=== PATIENT | male | born 1965 | race Caucasian/White ===

== ENCOUNTER 2016-06-10 15:20 | Emergency (ER) | payer MEDICARE ==
[~2016-06-10] VITALS: Ht 177.8 cm; Wt 101.0 kg
[~2016-06-10 15:20] MED LIST: ABAC300T PO; ALPR0.5T3 PO; ATOR40TA16 PO; CYCL1TAB29 PO; DOLU1TAB PO; FINA5TAB2 PO; GABA600T PO; IBUP-232 PO; LISI-519 PO; OMEP20TA PO; OXYC15TA PO; QUET400XR PO; TEMA30CA PO; ZIPR1CAP12 PO
[2016-06-10 15:29] VITALS: BP 103/82; PULSE 111; RESP 16; TEMP 98.3; O2SAT 96
[2016-06-10] MEDS ORDERED: REDCAP2 PO (16:11)
[2016-06-10] MEDS ORDERED: FISH120014 PO (16:11)
[2016-06-10] MEDS ORDERED: ZOFR4TAB PO (16:11)
[2016-06-10] MEDS ORDERED: TAMS5CAP PO (16:11)
[2016-06-10] MEDS ORDERED: ATOR40TA16 PO (16:11)
[2016-06-10] MEDS ORDERED: CYCL1TAB29 PO (16:11)
[2016-06-10] MEDS ORDERED: ZOLO100T PO (16:11)
[2016-06-10] MEDS ORDERED: ABAC1TAB3 PO (16:11)
[2016-06-10] MEDS ORDERED: CYAN1TAB24 PO (16:11)
--- NOTE | 2016-06-10 16:17 | PD ---
HPI Chief Complaint: Dizziness Time Seen by Provider: 16:04 Travel History International Travel<30 days: No Contact w/Intl Traveler<30days: No Traveled to known affect area: No History of Present Illness HPI This 50-year-old male presents after a fall. He has a history of HIV. He is scheduled for a hip replacement in June. He was walking and tripped. He fell and landed on his left knee and also hit the left side of his head and did not lose consciousness. He is feeling dizzy. He has a history of HIV. PFSH Past Medical History Blood Disorders: Yes (HIV+) Bipolar Disorder: Yes Anxiety: Yes (Panic attacks, paranoia) Depression: Yes Heart Rhythm Problems: No Cardiac Catheterization: No Cardiovascular Problems: No High Cholesterol: Yes Congestive Heart Failure: No Dementia: Yes Diabetes: No Diminished Hearing: No GERD: Yes Headaches: Yes Hypertension: Yes Immune Disorder: Yes (HIV +) Psychiatric: Yes (PANIC ATTACKS) Immunizations Current: Yes Migraines: Yes Myocardial Infarction: No Schizophrenia: Yes Triglycerides - High: Yes Tetanus Vaccination: < 5 Years Influenza Vaccination: Yes Past Surgical History Coronary Artery Bypass Graft: No Joint Replacement: Yes (BL shoulders) Oral Surgery: Yes (1978--WISDOM TEETH REMOVED) Other Surgery: Yes (WISDOM TEETH REMOVED) Social History Alcohol Use: No Tobacco Use: No Substance Use: No Allergies-Medications (Allergen,Severity, Reaction): Coded Allergies: No Known Allergies (Verified , 06/10/16) Reported Meds & Prescriptions Reported Meds & Active Scripts Active Ibuprofen 600 Mg Tab 600 Mg PO Q6H PRN Reported Triumeq (Wmpxgxkj-Hwidycgacnew-Dbbcwcpdgi) 600-50-300 Mg Tab 1 Tab PO DAILY Hazardous agent; use appropriate precautions for handling & disposal. Flexeril (Cyclobenzaprine HCl) 10 Mg Tab 10 Mg PO TID B12 (Cyanocobalamin) 1,000 Mcg Tab 1 Tab PO BID Red Yeast Rice (Red Yeast Rice Extract) 600 Mg Cap 1 Cap PO BID Fish Oil ([place]-3 Fatty Acids) 1,200 Mg Cap 1 Tab PO BID Zofran (Ondansetron HCl) 4 Mg Tab 4 Mg PO Q6HR PRN Flomax (Tamsulosin HCl) 0.4 Mg Cap 0.4 Mg PO BID Atorvastatin (Atorvastatin Calcium) 40 Mg Tab 40 Mg PO HS Zoloft (Sertraline HCl) 100 Mg Tab 100 Mg PO DAILY Ziprasidone 80 Mg Cap 80 Mg PO BID Temazepam 30 Mg Cap 30 Mg PO HS PRN Seroquel XR (Quetiapine Fumarate) 400 Mg Tab 800 Mg PO HS Oxycodone (Oxycodone HCl) 15 Mg Tab 30 Mg PO Q4H PRN Omeprazole 20 Mg Tab 20 Mg PO DAILY Lisinopril 5 Mg Tab 5 Mg PO DAILY Gabapentin 600 Mg Tab 600 Mg PO BID Finasteride 5 Mg Tab 5 Mg PO DAILY Do not crush. Alprazolam 0.5 Mg Tab 0.5 Mg PO Q4H PRN Review of Systems General / Constitutional: No: Fever, Chills Eyes: No: Diploplia HENT: Positive: Headaches, Lightheadedness, No: Neck Pain Cardiovascular: No: Chest Pain or Discomfort, Palpitations Respiratory: No: Cough Gastrointestinal: No: Vomiting, Diarrhea Genitourinary: No: Urgency Musculoskeletal: Positive: Arthralgias Skin: No Rash Neurologic: Positive: Dizziness, No: Syncope Physical Exam Narrative GENERAL: Well-developed male SKIN: Warm and dry. HEAD: Atraumatic. Normocephalic. EYES: Pupils equal and round. No scleral icterus. No injection or drainage. There is a 5 cm laceration above the left eye ENT: No nasal bleeding or discharge. Mucous membranes pink and moist. NECK: Trachea midline. No JVD. CARDIOVASCULAR: Regular rate and rhythm. No murmur appreciated. RESPIRATORY: No accessory muscle use. Clear to auscultation. Breath sounds equal bilaterally. GASTROINTESTINAL: Abdomen soft, non-tender, nondistended. Hepatic and splenic margins not palpable. MUSCULOSKELETAL: No obvious deformities. No clubbing. No cyanosis. No edema. Left knee is swollen. There is an abrasion anteriorly. No gross instability. NEUROLOGICAL: Awake and alert. No obvious cranial nerve deficits. Motor grossly within normal limits. Normal speech. PSYCHIATRIC: Appropriate mood and affect; insight and judgment normal. Data Data Last Documented VS Vital Signs Date Time Temp Pulse Resp B/P Pulse Ox O2 Delivery O2 Flow Rate FiO2 06/10/16 17:25 93 16 95/60 95 Room Air 06/10/16 16:20 98.3 Orders Knee, Complete (4vws) (06/10/16 16:12) Ct Brain W/O Iv Contrast(Rout) (06/10/16 16:12) Lidocai-Epi 1%-1:100,000 Inj (Xylocaine- (06/10/16 17:45) MDM Medical Decision Making Medical Screen Exam Complete: Yes Emergency Medical Condition: Yes Medical Record Reviewed: Yes Differential Diagnosis Differential includes laceration forehead, skull fracture, fractured knee Narrative Course X-ray of the knee is negative. CT scan of the head is negative. Laceration has been sutured. Patient is stable for discharge Diagnosis Primary Impression: Laceration of forehead Qualified Code: S01.81XA - Laceration of forehead, initial encounter Additional Impression: Contusion of left knee Qualified Code: S80.02XA - Contusion of left knee, initial encounter Additional Instructions: suture removal 5 days Scripts Oxycodone-Acetaminophen (Percocet)7.5-325 mg Tab1 Tab PO Q4H PRN (PAIN) #20 TAB Ref 0 Prov:Brenton Bell MD 06/10/16 Disposition: 01 DISCHARGE HOME Condition: Stable Brenton Bell MD Jun 10, 2016 16:17
[2016-06-10 16:20] VITALS: BP 82/57; PULSE 101; RESP 14; RESP 16; TEMP 98.3; O2SAT 92
[2016-06-10 16:35] VITALS: BP 92/70; PULSE 99; RESP 16; O2SAT 92
--- NOTE | 2016-06-10 16:55 | RADHPO ---
EXAM DATE/TIME: 06/10/2016 16:20 [facility] COMPARISON: No previous studies available for comparison. INDICATIONS : Patient states he fell, left knee laceration. MEDICAL HISTORY : HIV SURGICAL HISTORY : None. ENCOUNTER: Initial ACUITY: 1 day PAIN SCORE: 6/10 LOCATION: Left Knee FINDINGS: Four view examination of the left knee demonstrates no evidence of fracture or dislocation. Bony min eralization is normal. The articular surfaces are intact. The suprapatellar soft tissues have a nor mal configuration. CONCLUSION: Negative trauma study. Chandana Gomes MD on June 10, 2016 at 16:52 Board Certified Radiologist. This report was verified electronically.
--- NOTE | 2016-06-10 17:14 | RADHPO ---
EXAM DATE/TIME: 06/10/2016 17:02 1 [facility] COMPARISON: CT BRAIN W/O CONTRAST, December 21, 2014, 17:53. INDICATIONS : Trauma. Fall. Left supraorbital laceration. RADIATION DOSE: 61.69 CTDIvol (mGy) MEDICAL HISTORY : HIV. Hypertension. Dementia. SURGICAL HISTORY : None. ENCOUNTER: Initial ACUITY: 1 day PAIN SCALE: 8/10 LOCATION: Left frontal TECHNIQUE: Multiple contiguous axial images were obtained of the head. Using automated exposure control and adj ustment of the mA and/or kV according to patient size, radiation dose was kept as low as reasonably a chievable to obtain optimal diagnostic quality images. FINDINGS: CEREBRUM: The ventricles are normal for age. No evidence of midline shift, mass lesion, hemorrhage or acute in farction. No extra-axial fluid collections are seen. POSTERIOR FOSSA: The cerebellum and brainstem are intact. The 4th ventricle is midline. The cerebellopontine angle i s unremarkable. EXTRACRANIAL: The visualized portion of the orbits is intact. SKULL: The calvaria is intact. No evidence of skull fracture. CONCLUSION: Negative trauma CT. Chandana Gomes MD on June 10, 2016 at 17:11 Board Certified Radiologist. This report was verified electronically.
[2016-06-10 17:25] VITALS: BP 95/60; PULSE 93; RESP 16; O2SAT 95
[2016-06-10] MEDS ORDERED: LIDOCAINE 1%/EPINEPHrine 1:100,000 SOLN 20 ML VIAL INFIL ONE (17:30)
[2016-06-10] MEDS ORDERED: LIDOCAINE 1%/EPINEPHrine 1:100,000 SOLN 30 ML VIAL INFIL ONE (17:45)
[2016-06-10] MEDS ORDERED: PERC7.5T13 PO (18:35)
--- NOTE | 2016-06-10 18:36 | PD ---
Physical Exam Date Seen by Provider: Jun 10, 2016 Narrative For full history and physical examination please see previous provider's note. I was asked to repair laceration to left eyebrow Data Data Last Documented VS Vital Signs Date Time Temp Pulse Resp B/P Pulse Ox O2 Delivery O2 Flow Rate FiO2 06/10/16 17:25 93 16 95/60 95 Room Air 06/10/16 16:20 98.3 Orders Knee, Complete (4vws) (06/10/16 16:12) Ct Brain W/O Iv Contrast(Rout) (06/10/16 16:12) Lidocai-Epi 1%-1:100,000 Inj (Xylocaine- (06/10/16 17:45) MDM Medical Record Reviewed: Yes Supervised Visit with MAR: Yes Procedures Procedure Narrative LACERATION LOCATION: Left eyebrow LENGTH: 2 cm NUMBER OF STITCHES/REUBEN: 11 stitches REPAIR: The area of the laceration was prepped with Betadine and sterilely draped. The laceration was infiltrated with 2 presented Xylocaine. The wound was copiously irrigated and explored without evidence of foreign body, tendon injury or neurovascular injury. The wound was closed using 4-0 Prolene. This was a 1 layer repair. A sterile dressing was applied. The patient was advised to keep the dressing clean and dry. Patient tolerated the procedure well. Scripts Oxycodone-Acetaminophen (Percocet)7.5-325 mg Tab1 Tab PO Q4H PRN (PAIN) #20 TAB Ref 0 Prov:Brenton Bell MD 06/10/16 Jael Mcpherson Jun 10, 2016 18:36
[2016-06-10 18:40] VITALS: BP 97/62; PULSE 85; RESP 16; O2SAT 96
== END 2016-06-10 18:45 | disposition home or self-care (01) ==
LOC: PHED 15:20
DX: S01.81XA Laceration without foreign body of other part of head, initial encounter (principal); S80.02XA Contusion of left knee, initial encounter; E78.00 Pure hypercholesterolemia, unspecified; I10 Essential (primary) hypertension; W01.10XA Fall on same level from slipping, tripping and stumbling with subsequent striking against unspecified object, initial encounter; Y93.01 Activity, walking, marching and hiking
CPT/HCPCS: 12011; 70450; 73564

== ENCOUNTER 2016-06-21 11:55 | Emergency (ER) | payer MEDICARE ==
[~2016-06-21] VITALS: Ht 177.8 cm; Wt 96.0 kg
[~2016-06-21 11:55] MED LIST changes: +ABAC1TAB3 PO; -ABAC300T PO; +CYAN1TAB24 PO; -DOLU1TAB PO; +FISH120014 PO; +PERC7.5T13 PO; +REDCAP2 PO; +TAMS5CAP PO; +ZOFR4TAB PO; +ZOLO100T PO
[2016-06-21 12:26] VITALS: BP 103/74; PULSE 106; RESP 16; TEMP 98.9; O2SAT 96
--- NOTE | 2016-06-21 12:52 | PD ---
HPI Chief Complaint: Wound/Suture/Staple Re-Check Time Seen by Provider: 12:37 Travel History International Travel<30 days: No Contact w/Intl Traveler<30days: No Traveled to known affect area: No History of Present Illness HPI Patient 50-year-old male presents emergency department for suture removal. Patient had sutures placed 11 days ago to forehead. 11 stitches were placed at that time. Patient states his been healing well he has no complaints. Also head CT had at that time which was negative. Left knee x-ray which was negative as well. PFSH Past Medical History Blood Disorders: Yes (HIV+) Bipolar Disorder: Yes Anxiety: Yes (Panic attacks, paranoia) Depression: Yes Heart Rhythm Problems: No Cardiac Catheterization: No Cardiovascular Problems: No High Cholesterol: Yes Congestive Heart Failure: No Dementia: Yes Diabetes: No Diminished Hearing: No GERD: Yes Headaches: Yes Hypertension: Yes Immune Disorder: Yes (HIV +) Psychiatric: Yes (PANIC ATTACKS) Immunizations Current: Yes Migraines: Yes Myocardial Infarction: No Schizophrenia: Yes Triglycerides - High: Yes Past Surgical History Coronary Artery Bypass Graft: No Joint Replacement: Yes (BL shoulders) Oral Surgery: Yes (1978--WISDOM TEETH REMOVED) Other Surgery: Yes (WISDOM TEETH REMOVED) Social History Alcohol Use: No Tobacco Use: No Substance Use: No Allergies-Medications (Allergen,Severity, Reaction): Coded Allergies: No Known Allergies (Verified , 06/21/16) Reported Meds & Prescriptions Reported Meds & Active Scripts Active Percocet (Oxycodone-Acetaminophen) 7.5-325 mg Tab 1 Tab PO Q4H PRN Ibuprofen 600 Mg Tab 600 Mg PO Q6H PRN Reported Triumeq ([place]-Lgqjnynjtvrn-Sejtuhixue) 600-50-300 Mg Tab 1 Tab PO DAILY Hazardous agent; use appropriate precautions for handling & disposal. Flexeril (Cyclobenzaprine HCl) 10 Mg Tab 10 Mg PO TID B12 (Cyanocobalamin) 1,000 Mcg Tab 1 Tab PO BID Red Yeast Rice (Red Yeast Rice Extract) 600 Mg Cap 1 Cap PO BID Fish Oil ([place]-3 Fatty Acids) 1,200 Mg Cap 1 Tab PO BID Zofran (Ondansetron HCl) 4 Mg Tab 4 Mg PO Q6HR PRN Flomax (Tamsulosin HCl) 0.4 Mg Cap 0.4 Mg PO BID Atorvastatin (Atorvastatin Calcium) 40 Mg Tab 40 Mg PO HS Zoloft (Sertraline HCl) 100 Mg Tab 100 Mg PO DAILY Ziprasidone 80 Mg Cap 80 Mg PO BID Temazepam 30 Mg Cap 30 Mg PO HS PRN Seroquel XR (Quetiapine Fumarate) 400 Mg Tab 800 Mg PO HS Oxycodone (Oxycodone HCl) 15 Mg Tab 30 Mg PO Q4H PRN Omeprazole 20 Mg Tab 20 Mg PO DAILY Lisinopril 5 Mg Tab 5 Mg PO DAILY Gabapentin 600 Mg Tab 600 Mg PO BID Finasteride 5 Mg Tab 5 Mg PO DAILY Do not crush. Alprazolam 0.5 Mg Tab 0.5 Mg PO Q4H PRN Review of Systems Except as stated in HPI: all other systems reviewed are Neg Physical Exam Narrative GENERAL: Well-nourished, well-developed patient. SKIN: Warm and dry. Well healing laceration to left eyebrow. [address]. Wound is clean dry and intact healing quite well. No sign symptoms of infection. HEAD: Normocephalic. EYES: No scleral icterus. No injection or drainage. NECK: Supple, trachea midline. No JVD or lymphadenopathy. CARDIOVASCULAR: Regular rate and rhythm without murmurs, gallops, or rubs. RESPIRATORY: Breath sounds equal bilaterally. No accessory muscle use. GASTROINTESTINAL: Abdomen soft, non-tender, nondistended. MUSCULOSKELETAL: No cyanosis, or edema. BACK: Nontender without obvious deformity. No CVA tenderness. Data Data Last Documented VS Vital Signs Date Time Temp Pulse Resp B/P Pulse Ox O2 Delivery O2 Flow Rate FiO2 06/21/16 12:26 98.9 106 16 103/74 96 [facility] Medical Decision Making Medical Screen Exam Complete: Yes Emergency Medical Condition: Yes Differential Diagnosis Counter for suture repair, laceration, closed head injury. Narrative Course 9 sutures removed by me. This in contradiction to previous notes is 11 stitches are placed. It appears as well as 2 stitches might have fallen out. The wound was fully explored there is only 9 stitches in this wound at this time. Patient is reassured discussed wound care going forward. Stable for discharge. Diagnosis Primary Impression: Visit for suture removal Disposition: 01 DISCHARGE HOME Condition: Stable Doug Jesus MD Jun 21, 2016 12:52
== END 2016-06-21 13:23 | disposition home or self-care (01) ==
LOC: PHEFT 11:55
DX: S01.112D Laceration without foreign body of left eyelid and periocular area, subsequent encounter (principal); Z48.02 Encounter for removal of sutures; X58.XXXD Exposure to other specified factors, subsequent encounter
CPT/HCPCS: 99281

== ENCOUNTER → 2016-07-19 | Outpatient (CLI) | payer MEDICARE ==
[~2016-07-19] MED LIST changes: +OMEGCAP PO
[2016-07-19 15:04] LABS: AUTOMATED NEUTROPHIL # 2.1 TH/MM3 (1.8-7.7); BASOPHIL % 0.5 % (0.0-2.0); EOSINOPHIL # 0.5 TH/MM3 (0-0.4); EOSINOPHIL % 7.4 % (0.0-4.0); HEMATOCRIT 38.8 % (39.0-51.0); HEMO FLAGS DIFF FINAL; LYMPH % 56.4 % (9.0-44.0); LYMPHOCYTE # 3.8 TH/MM3 (1.0-4.8); MEAN CELL VOLUME 89.9 FL (80.0-100.0); MEAN CORPUSCULAR HEMOGLOBIN 29.8 PG (27.0-34.0); MEAN CORPUSCULAR HGB CONC 33.1 % (32.0-36.0); MONO % 4.7 % (0.0-8.0); PLATELET COUNT 248 TH/MM3 (150-450); RED BLOOD COUNT 4.31 MIL/MM3 (4.50-5.90); WHITE BLOOD COUNT 6.7 TH/MM3 (4.0-11.0)
[2016-07-19 15:31] LABS: ALKALINE PHOSPHATASE 118 U/L (45-117); TOTAL BILIRUBIN ADULT 0.3 MG/DL (0.2-1.0)
[2016-07-19 15:35] LABS: ALT (GPT) 45 U/L (12-78); ANION GAP 9 MEQ/L (5-15); AST (GOT) 31 U/L (15-37); BICARBONATE 27.2 MEQ/L (21.0-32.0); BLOOD UREA NITROGEN 7 MG/DL (7-18); CHLORIDE 107 MEQ/L (98-107); GLOMERULAR FILTRATION RATE 72 ML/MIN (>89); GLUCOSE,FASTING 136 MG/DL (74-99); POTASSIUM 3.9 MEQ/L (3.5-5.1); SODIUM (NA) 143 MEQ/L (136-145)
[2016-07-19 17:18] LABS: CHLAMYDIA PCR NOT DETECTED (NOT DETECT); NEISSERIA PCR NOT DETECTED (NOT DETECT)
[2016-07-19 17:24] LABS: HEMOGLOBIN A1b 1.7 %; HEMOGLOBIN Ao 84.4 %; HEMOGLOBIN LA1C 2.3 %; HEMOGLOBIN P3 3.1 %
[2016-07-21 23:53] LABS: CD4/CD8 RATIO 0.4 (0.86-5.00)
[2016-07-22 09:52] LABS: HIV RNA COPIES LESS THAN 20.0 (()); HIV RNA LOG COPIES LESS THAN 1.30 (())
== END ==
LOC: CLAB 14:32
PROVIDERS: ATTEND Internal Medicine Infectious Disease
DX: E87.8 Other disorders of electrolyte and fluid balance, not elsewhere classified (principal); D64.9 Anemia, unspecified; E55.9 Vitamin D deficiency, unspecified; B20 Human immunodeficiency virus [HIV] disease; B07.9 Viral wart, unspecified; R94.6 Abnormal results of thyroid function studies
CPT/HCPCS: 36415; 80053; 82306; 83036; 84443; 85025; 86355; 86357; 86359; 86360; 87491; 87536; 87591

== ENCOUNTER → 2016-10-07 | Outpatient (CLI) | payer MEDICARE ==
[2016-10-07 12:28] LABS: BLOOD, URINE NEG (NEG); GLUCOSE,URINE NEG (NEG); KETONE, URINE NEG (NEG); NITRITE,URINE NEG (NEG); URINE COLOR YELLOW (YELLW/STRAW)
[2016-10-07 12:31] LABS: COMMENT (UR) CULT NOT INDICATED; CULTURE IF INDICATED CULT NOT INDICATED
[2016-10-07 12:32] LABS: AUTOMATED NEUTROPHIL # 1.8 TH/MM3 (1.8-7.7); BASOPHIL % 0.4 % (0.0-2.0); EOSINOPHIL # 0.4 TH/MM3 (0-0.4); EOSINOPHIL % 7.5 % (0.0-4.0); HEMATOCRIT 37.2 % (39.0-51.0); HEMO FLAGS DIFF FINAL; LYMPH % 53.6 % (9.0-44.0); MEAN CORPUSCULAR HEMOGLOBIN 28.3 PG (27.0-34.0); MONO % 5.7 % (0.0-8.0); NEUT % 32.8 % (16.0-70.0); PLATELET COUNT 238 TH/MM3 (150-450); RED BLOOD COUNT 4.32 MIL/MM3 (4.50-5.90); WHITE BLOOD COUNT 5.6 TH/MM3 (4.0-11.0)
[2016-10-07 12:55] LABS: ANION GAP 5 MEQ/L (5-15); AST (GOT) 31 U/L (15-37); BICARBONATE 28.9 MEQ/L (21.0-32.0); BLOOD UREA NITROGEN 10 MG/DL (7-18); CHLORIDE 107 MEQ/L (98-107); GLOMERULAR FILTRATION RATE 70 ML/MIN (>89); GLUCOSE,FASTING 131 MG/DL (74-99); POTASSIUM 3.6 MEQ/L (3.5-5.1); SODIUM (NA) 141 MEQ/L (136-145)
[2016-10-07 12:58] LABS: ALKALINE PHOSPHATASE 166 U/L (45-117); ALT (GPT) 39 U/L (12-78); HDL CHOLESTEROL 36.8 MG/DL (40.0-60.0); LDL CHOLESTEROL 54 MG/DL (0-99); TOTAL BILIRUBIN ADULT 0.4 MG/DL (0.2-1.0)
[2016-10-08 09:51] LABS: RAPID PLASMA REAGIN SCREEN NON-REACTIVE (NON-REACTVE)
[2016-10-09 03:50] LABS: CD4/CD8 RATIO 0.4 (0.86-5.00)
[2016-10-09 13:51] LABS: HIV RNA COPIES LESS THAN 20.0 (()); HIV RNA LOG COPIES LESS THAN 1.30 (())
== END ==
LOC: CLAB 11:55
PROVIDERS: ATTEND Internal Medicine Infectious Disease
DX: E87.8 Other disorders of electrolyte and fluid balance, not elsewhere classified (principal); D64.9 Anemia, unspecified; B20 Human immunodeficiency virus [HIV] disease; E78.4 Other hyperlipidemia; K75.9 Inflammatory liver disease, unspecified; A53.9 Syphilis, unspecified; N39.0 Urinary tract infection, site not specified; E55.9 Vitamin D deficiency, unspecified
CPT/HCPCS: 36415; 80053; 80061; 80074; 81001; 82306; 85025; 86355; 86357; 86359; 86360; 86592; 87536

== ENCOUNTER 2016-10-16 04:03 | Emergency (ER) | payer MEDICARE ==
[~2016-10-16] VITALS: Ht 177.8 cm; Wt 98.4 kg
[~2016-10-16 04:03] MED LIST changes: -OMEGCAP PO
[2016-10-16 04:14] VITALS: BP 129/80; PULSE 103; RESP 12; TEMP 98.1; O2SAT 95
[2016-10-16] MEDS ORDERED: OMEGCAP PO (04:35)
--- NOTE | 2016-10-16 05:03 | PD ---
HPI Chief Complaint: Headache Time Seen by Provider: 05:03 Travel History International Travel<30 days: No Contact w/Intl Traveler<30days: No Traveled to known affect area: No History of Present Illness HPI 66-year-old male presents with complaint of recurrent breakthrough migraine. Patient is followed by local neurologist pain management provider Dr. Fraga. Patient has seen his neurologist within the past 2 weeks everything was fine. Patient states oftentimes has breakthrough migraines related to inadequate dietary intake and just began a diet. Patient's had associated nausea and vomiting with photophobia and phonophobia. Headache is not sudden onset thunderclap or worst ever. Patient not responding to outpatient medications. Headache pain 9/10 intensity. PFSH Past Medical History Narrative Medical Review of past medical history dyslipidemia dementia HIV migraine; orthopedic surgery dental surgery; no tobacco use no alcohol use; Nursing notes reviewed Blood Disorders: Yes (HIV+) Bipolar Disorder: Yes Anxiety: Yes (Panic attacks, paranoia) Depression: Yes Heart Rhythm Problems: No Cardiac Catheterization: No Cardiovascular Problems: No High Cholesterol: Yes Congestive Heart Failure: No Dementia: Yes Diabetes: No Diminished Hearing: No GERD: Yes Headaches: Yes Hypertension: Yes Immune Disorder: Yes (HIV +) Psychiatric: Yes (PANIC ATTACKS) Immunizations Current: Yes Migraines: Yes Myocardial Infarction: No Pneumonia: Yes Schizophrenia: Yes Triglycerides - High: Yes Influenza Vaccination: Yes Past Surgical History Coronary Artery Bypass Graft: No Joint Replacement: Yes (BL shoulders, LEFT HIP: SEPTEMBER 01, 2016) Oral Surgery: Yes (1978--WISDOM TEETH REMOVED) Other Surgery: Yes (WISDOM TEETH REMOVED) Social History Alcohol Use: No Tobacco Use: No Substance Use: No Allergies-Medications (Allergen,Severity, Reaction): Coded Allergies: No Known Allergies (Verified , 10/16/16) Reported Meds & Prescriptions Reported Meds & Active Scripts Active Percocet (Oxycodone-Acetaminophen) 7.5-325 mg Tab 1 Tab PO Q4H PRN Reported [place]-3 Fish Oil/Vitamin (Fish Oil-Cholecalciferol) 1,000-1,000 Mg Cap 1 Cap PO BID Triumeq (Xblvxmzh-Jhfxlxamteui-Gvxldzfusu) 600-50-300 Mg Tab 1 Tab PO DAILY Hazardous agent; use appropriate precautions for handling & disposal. B12 (Cyanocobalamin) 1,000 Mcg Tab 1 Tab PO BID Red Yeast Rice (Red Yeast Rice Extract) 600 Mg Cap 1 Cap PO BID Zofran (Ondansetron HCl) 4 Mg Tab 4 Mg PO Q6HR PRN Flomax (Tamsulosin HCl) 0.4 Mg Cap 0.4 Mg PO DAILY Atorvastatin (Atorvastatin Calcium) 40 Mg Tab 40 Mg PO HS Zoloft (Sertraline HCl) 100 Mg Tab 100 Mg PO DAILY Ziprasidone 80 Mg Cap 80 Mg PO BID Temazepam 30 Mg Cap 30 Mg PO HS PRN Seroquel XR (Quetiapine Fumarate) 400 Mg Tab 800 Mg PO HS Oxycodone (Oxycodone HCl) 15 Mg Tab 30 Mg PO Q4H PRN Omeprazole 20 Mg Tab 20 Mg PO DAILY Lisinopril 5 Mg Tab 5 Mg PO DAILY Gabapentin 600 Mg Tab 600 Mg PO BID Alprazolam 0.5 Mg Tab 0.5 Mg PO Q4H PRN Review of Systems Except as stated in HPI: all other systems reviewed are Neg General / Constitutional: No: Fever Eyes: Positive: Photophobia HENT: Positive: Headaches, No: Congestion, Neck Pain Cardiovascular: No: Chest Pain or Discomfort Respiratory: No: Shortness of Breath Gastrointestinal: Positive: Vomiting (x1) Genitourinary: No: Flank Pain Musculoskeletal: No: Myalgias Skin: No Rash Neurologic: Positive: Headache, No: Weakness, Focal Abnormalities, Coordination Problem Psychiatric: No: Anxiety Hematologic/Lymphatic: No: Lymph Node Enlargement Physical Exam Narrative GENERAL: Well-developed well-nourished drowsy male in no acute distress no respiratory distress SKIN: Warm and dry. HEAD: Atraumatic. Normocephalic. EYES: Pupils equal and round. No scleral icterus. No injection or drainage. ENT: No nasal bleeding or discharge. Mucous membranes pink and moist. NECK: Trachea midline. No JVD. CARDIOVASCULAR: Regular rate and rhythm. RESPIRATORY: No accessory muscle use. Clear to auscultation. Breath sounds equal bilaterally. GASTROINTESTINAL: Abdomen soft, non-tender, nondistended. Hepatic and splenic margins not palpable. MUSCULOSKELETAL: Extremities without clubbing, cyanosis, or edema. No obvious deformities. NEUROLOGICAL: Awake and drowsy. No obvious cranial nerve deficits. Motor grossly within normal limits. Five out of 5 muscle strength in the arms and legs. Normal speech. PSYCHIATRIC: Appropriate mood and affect; insight and judgment normal. Data Data Last Documented VS Vital Signs Date Time Temp Pulse Resp B/P Pulse Ox O2 Delivery O2 Flow Rate FiO2 10/16/16 07:01 97.8 83 16 107/73 95 Room Air 10/16/16 05:[address] Brain W/O Iv Contrast(Rout) (10/16/16 ) ^ Saline Lock (10/16/16 05:03) Ketorolac Inj (Toradol Inj) (10/16/16 05:15) Ondansetron Inj (Zofran Inj) (10/16/16 05:15) Sodium Chlor 0.9% 1000 Ml Inj (Ns 1000 M (10/16/16 05:15) MDM Medical Decision Making Medical Screen Exam Complete: Yes Emergency Medical Condition: Yes Medical Record Reviewed: Yes Interpretation(s) Last Impressions Head CT 10/16/16 0000 Signed Impressions: Service Date/Time: Tuesday, October 16, 2016 05:47 - CONCLUSION: Normal examination. Carlos Barrios MD Differential Diagnosis Cephalgia, recurrent migraine, tension headache, polypharmacy Narrative Course 66-year-old male presents with complaint of recurrent breakthrough migraine. Patient is followed by local neurologist pain management provider Dr. Fraga. Patient has seen his neurologist within the past 2 weeks everything was fine. Patient states oftentimes has breakthrough migraines related to inadequate dietary intake and just began a diet. Patient's had associated nausea and vomiting with photophobia and phonophobia. Headache is not sudden onset thunderclap or worst ever. Patient not responding to outpatient medications. Patient administered Toradol 30 mg IV Zofran 4 mg IV and 1 L normal saline. Imaging studies CT brain noncontrast ordered CT brain noncontrast reveals no acute abnormality Patient reports he is feeling well and is ready to be discharged to home successful intervention of extreme migraine and stable at this time for outpatient management Diagnosis Primary Impression: Migraine Qualified Code: G43.909 - Migraine without status migrainosus, not intractable , unspecified migraine type Referrals: Neurologist call for appointment Pain Management call for appointment Primary Care Physician call for appointment Patient Instructions: General Instructions Additional Instructions: Increase fluid hydration Continued use Zofran as needed for nausea and/or vomiting Follow-up with your primary care provider, pain management provider, and your neurologist call office on Tuesday to schedule follow-up appointment Return to the emergency department for any concerns or change in condition Take acetaminophen/Tylenol as tolerated for fever 100.4F or greater or for minor pain Disposition: 01 DISCHARGE HOME Condition: Stable Franci Wood MD October 16, 2016 05:03
[2016-10-16] MEDS ORDERED: KETOROLAC TROMETHAMINE 30 MG/ML (IVP) VIAL IV PUSH ONE (05:15)
[2016-10-16] MEDS ORDERED: ONDANSETRON HCL 4 MG/2 ML VIAL IV PUSH ONE (05:15)
[2016-10-16] MEDS ORDERED: SODIUM CHLOR 0.9% 1000 ML INJ 1,000 ML IV ONE (05:15)
[2016-10-16 05:30] VITALS: BP 84/52; PULSE 86; RESP 12; O2SAT 95
--- NOTE | 2016-10-16 06:34 | RADHPO ---
EXAM DATE/TIME: 10/16/2016 05:47 [facility] COMPARISON: CT BRAIN W/O CONTRAST, June 10, 2016, 17:02. INDICATIONS : Headaches. RADIATION DOSE: 66.63 CTDIvol (mGy) MEDICAL HISTORY : Hypertension. Dementia. HIV. SURGICAL HISTORY : None. ENCOUNTER: Initial ACUITY: 1 day PAIN SCALE: 8/10 LOCATION: cranial TECHNIQUE: Multiple contiguous axial images were obtained of the head. Using automated exposure control and adj ustment of the mA and/or kV according to patient size, radiation dose was kept as low as reasonably a chievable to obtain optimal diagnostic quality images. FINDINGS: CEREBRUM: The ventricles are normal for age. No evidence of midline shift, mass lesion, hemorrhage or acute in farction. No extra-axial fluid collections are seen. POSTERIOR FOSSA: The cerebellum and brainstem are intact. The 4th ventricle is midline. The cerebellopontine angle i s unremarkable. EXTRACRANIAL: The visualized portion of the orbits is intact. SKULL: The calvaria is intact. No evidence of skull fracture. CONCLUSION: Normal examination. Carlos Barrios MD on October 16, 2016 at 6:33 Board Certified Radiologist. This report was verified electronically.
[2016-10-16 07:01] VITALS: BP 107/73; PULSE 83; RESP 16; TEMP 97.8; O2SAT 95
== END 2016-10-16 07:45 | disposition home or self-care (01) ==
LOC: PHED 04:03
DX: G43.909 Migraine, unspecified, not intractable, without status migrainosus (principal); B20 Human immunodeficiency virus [HIV] disease; F03.90 Unspecified dementia, unspecified severity, without behavioral disturbance, psychotic disturbance, mood disturbance, and anxiety; I10 Essential (primary) hypertension; F41.0 Panic disorder [episodic paroxysmal anxiety]; F20.9 Schizophrenia, unspecified; E78.2 Mixed hyperlipidemia; F32.9 Major depressive disorder, single episode, unspecified
CPT/HCPCS: 70450; 96361; 96374; 96375; 99285; J1885; J2405; J7030

== ENCOUNTER → 2017-02-14 | Outpatient (CLI) | payer MEDICARE ==
[~2017-02-14] MED LIST changes: -CYCL1TAB29 PO; -FINA5TAB2 PO; -FISH120014 PO; -IBUP-232 PO; +OMEGCAP PO
[2017-02-14 11:27] LABS: AUTOMATED NEUTROPHIL # 3.9 TH/MM3 (1.8-7.7); BASOPHIL # 0.1 TH/MM3 (0-0.2); BASOPHIL % 0.6 % (0.0-2.0); EOSINOPHIL # 0.2 TH/MM3 (0-0.4); EOSINOPHIL % 2.6 % (0.0-4.0); HEMATOCRIT 36.6 % (39.0-51.0); HEMO FLAGS DIFF FINAL; LYMPH % 44.6 % (9.0-44.0); LYMPHOCYTE # 3.7 TH/MM3 (1.0-4.8); MEAN CELL VOLUME 86.3 FL (80.0-100.0); MEAN CORPUSCULAR HEMOGLOBIN 28.3 PG (27.0-34.0); MEAN CORPUSCULAR HGB CONC 32.8 % (32.0-36.0); MONO % 5.1 % (0.0-8.0); NEUT % 47.1 % (16.0-70.0); PLATELET COUNT 293 TH/MM3 (150-450); RED BLOOD COUNT 4.24 MIL/MM3 (4.50-5.90); RED CELL DISTRIBUTION WIDTH 17.8 % (11.6-17.2); WHITE BLOOD COUNT 8.3 TH/MM3 (4.0-11.0)
[2017-02-14 11:54] LABS: ALKALINE PHOSPHATASE 119 U/L (45-117); HDL CHOLESTEROL 45.6 MG/DL (40.0-60.0); TOTAL BILIRUBIN ADULT 0.4 MG/DL (0.2-1.0)
[2017-02-14 11:57] LABS: ALT (GPT) 23 U/L (12-78); ANION GAP 8 MEQ/L (5-15); BICARBONATE 28.4 MEQ/L (21.0-32.0); BLOOD UREA NITROGEN 8 MG/DL (7-18); CHLORIDE 105 MEQ/L (98-107); GLOMERULAR FILTRATION RATE 73 ML/MIN (>89); GLUCOSE,FASTING 116 MG/DL (74-99); LDL CHOLESTEROL 56 MG/DL (0-99); SODIUM (NA) 141 MEQ/L (136-145)
[2017-02-14 11:59] LABS: AST (GOT) 32 U/L (15-37); POTASSIUM 3.7 MEQ/L (3.5-5.1)
[2017-02-14 13:17] LABS: HEMOGLOBIN A1a 1.5 %; HEMOGLOBIN A1b 1.9 %; HEMOGLOBIN Ao 83.2 %; HEMOGLOBIN LA1C 2.3 %; HEMOGLOBIN P3 3.1 %
== END ==
LOC: CLAB 11:00
PROVIDERS: ATTEND Family Medicine
DX: I10 Essential (primary) hypertension (principal); E10.8 Type 1 diabetes mellitus with unspecified complications; E78.2 Mixed hyperlipidemia; Z79.899 Other long term (current) drug therapy
CPT/HCPCS: 36415; 80053; 80061; 83036; 85025

== ENCOUNTER → 2017-02-17 | Outpatient (CLI) | payer MEDICARE ==
[2017-02-17 09:42] LABS: AUTOMATED NEUTROPHIL # 2.5 TH/MM3 (1.8-7.7); BASOPHIL % 0.5 % (0.0-2.0); EOSINOPHIL # 0.2 TH/MM3 (0-0.4); EOSINOPHIL % 3.2 % (0.0-4.0); HEMATOCRIT 38.1 % (39.0-51.0); HEMO FLAGS DIFF FINAL; LYMPH % 55.8 % (9.0-44.0); LYMPHOCYTE # 3.9 TH/MM3 (1.0-4.8); MEAN CELL VOLUME 86.2 FL (80.0-100.0); MEAN CORPUSCULAR HEMOGLOBIN 27.5 PG (27.0-34.0); MEAN CORPUSCULAR HGB CONC 31.9 % (32.0-36.0); MONO % 5.4 % (0.0-8.0); NEUT % 35.1 % (16.0-70.0); PLATELET COUNT 320 TH/MM3 (150-450); RED BLOOD COUNT 4.41 MIL/MM3 (4.50-5.90); RED CELL DISTRIBUTION WIDTH 17.5 % (11.6-17.2)
[2017-02-17 10:22] LABS: ALT (GPT) 21 U/L (12-78); ANION GAP 3 MEQ/L (5-15); AST (GOT) 16 U/L (15-37); BICARBONATE 33.6 MEQ/L (21.0-32.0); BLOOD UREA NITROGEN 10 MG/DL (7-18); CHLORIDE 105 MEQ/L (98-107); GLOMERULAR FILTRATION RATE 76 ML/MIN (>89); GLUCOSE,FASTING 96 MG/DL (74-99); POTASSIUM 3.5 MEQ/L (3.5-5.1); SODIUM (NA) 142 MEQ/L (136-145)
[2017-02-17 10:24] LABS: ALKALINE PHOSPHATASE 120 U/L (45-117); TOTAL BILIRUBIN ADULT 0.3 MG/DL (0.2-1.0)
[2017-02-19 11:53] LABS: HIV RNA COPIES LESS THAN 20.0 (<20); HIV RNA LOG COPIES LESS THAN 1.30 (<1.30)
[2017-02-19 17:52] LABS: CD4/CD8 RATIO 0.5 (0.86-5.00)
== END ==
LOC: CLAB 09:00
PROVIDERS: ATTEND Internal Medicine Infectious Disease
DX: E87.8 Other disorders of electrolyte and fluid balance, not elsewhere classified (principal); D64.9 Anemia, unspecified; B20 Human immunodeficiency virus [HIV] disease; R97.20 Elevated prostate specific antigen [PSA]; A53.9 Syphilis, unspecified
CPT/HCPCS: 36415; 80053; 84153; 85025; 86355; 86357; 86359; 86360; 86592; 87536

== ENCOUNTER → 2017-05-18 | Outpatient (CLI) | payer MEDICARE ==
[~2017-05-18] MED LIST changes: -OMEP20TA PO; +OMEP20TA93 PO
[2017-05-18 16:40] LABS: HEMOGLOBIN A1C 6.8 % (4.3-6.0)
== END ==
LOC: CLAB 10:40
PROVIDERS: ATTEND Family Medicine
DX: I10 Essential (primary) hypertension (principal); E10.8 Type 1 diabetes mellitus with unspecified complications; Z79.899 Other long term (current) drug therapy
CPT/HCPCS: 36415; 82570; 83036; 84156

== ENCOUNTER 2017-05-30 13:14 | Emergency (ER) | payer MEDICARE ==
[~2017-05-30] VITALS: Ht 177.8 cm; Wt 93.0 kg
[2017-05-30 13:18] VITALS: BP 140/76; PULSE 102; RESP 22; TEMP 98; O2SAT 100
[2017-05-30] MEDS ORDERED: SODIUM CHLOR 0.9% 1000 ML INJ 1,000 ML IV SCH (13:46)
--- NOTE | 2017-05-30 13:59 | PD ---
HPI Chief Complaint: Cold / Flu Symptoms Time Seen by Provider: 13:41 Travel History International Travel<30 days: No Contact w/Intl Traveler<30days: No Traveled to known affect area: No History of Present Illness HPI 51-year-old male, HIV positive, here with flulike illness. He reports fever, chills, cough, body ache 3 days. Symptom severity is moderate. No aggravating or alleviating factors. He denies headache, neck pain, chest pain, shortness breath, abdominal pain. He reports compliance with his antivirals and last CD4 was 1100. He is followed by Dr. Bernal. [facility] Past Medical History Blood Disorders: Yes (HIV+) Bipolar Disorder: Yes Anxiety: Yes (Panic attacks, paranoia) Depression: Yes Heart Rhythm Problems: No Cardiac Catheterization: No Cardiovascular Problems: No High Cholesterol: Yes Congestive Heart Failure: No Dementia: Yes Diabetes: No Diminished Hearing: No GERD: Yes Headaches: Yes Hypertension: Yes Immune Disorder: Yes (HIV +) Psychiatric: Yes (PANIC ATTACKS) Immunizations Current: Yes Migraines: Yes Myocardial Infarction: No Pneumonia: Yes Schizophrenia: Yes Triglycerides - High: Yes Tetanus Vaccination: < 5 Years Influenza Vaccination: Yes Past Surgical History Coronary Artery Bypass Graft: No Joint Replacement: Yes (BL shoulders, LEFT HIP: SEPTEMBER 01, 2016) Oral Surgery: Yes (1978--WISDOM TEETH REMOVED) Other Surgery: Yes (WISDOM TEETH REMOVED) Social History Alcohol Use: No Tobacco Use: No Substance Use: No Allergies-Medications (Allergen,Severity, Reaction): Coded Allergies: No Known Allergies (Verified Adverse Reaction, Unknown, 05/30/17) Reported Meds & Prescriptions Reported Meds & Active Scripts Active Reported Belle-3 Fish Oil/Vitamin (Fish Oil-Cholecalciferol) 1,000-1,000 Mg Cap 1 Cap PO BID Triumeq (Xiqwyfnj-Mokjjpmbzwqa-Ycxtbpneah) 600-50-300 Mg Tab 1 Tab PO DAILY Hazardous agent; use appropriate precautions for handling & disposal. B12 (Cyanocobalamin) 1,000 Mcg Tab 1 Tab PO BID Red Yeast Rice (Red Yeast Rice Extract) 600 Mg Cap 1 Cap PO BID Zofran (Ondansetron HCl) 4 Mg Tab 4 Mg PO Q6HR PRN Flomax (Tamsulosin HCl) 0.4 Mg Cap 0.4 Mg PO DAILY Atorvastatin (Atorvastatin Calcium) 40 Mg Tab 40 Mg PO HS Zoloft (Sertraline HCl) 100 Mg Tab 100 Mg PO DAILY Ziprasidone 80 Mg Cap 80 Mg PO BID Temazepam 30 Mg Cap 30 Mg PO HS PRN Seroquel XR (Quetiapine Fumarate) 400 Mg Tab 800 Mg PO HS Oxycodone (Oxycodone HCl) 15 Mg Tab 30 Mg PO Q4H PRN Omeprazole 20 Mg Tab 20 Mg PO DAILY Lisinopril 5 Mg Tab 5 Mg PO DAILY Gabapentin 600 Mg Tab 600 Mg PO BID Alprazolam 0.5 Mg Tab 0.5 Mg PO Q4H PRN Review of Systems Except as stated in HPI: all other systems reviewed are Neg General / Constitutional: Positive: Fever, Chills Eyes: No: Visual changes HENT: No: Headaches Cardiovascular: No: Chest Pain or Discomfort Respiratory: Positive: Cough Gastrointestinal: No: Abdominal Pain Genitourinary: No: Dysuria Musculoskeletal: Positive: Myalgias Skin: No Rash Physical Exam Narrative GENERAL: Alert male. Appears ill but nontoxic SKIN: Warm and dry. No rash HEAD: Atraumatic. Normocephalic. EYES: Pupils equal and round. No scleral icterus. No injection or drainage. ENT: No nasal bleeding or discharge. Mucous membranes pink and moist. NECK: Trachea midline. No adenopathy. No meningismus CARDIOVASCULAR: Regular rate and rhythm. RESPIRATORY: No accessory muscle use. Clear to auscultation. Breath sounds equal bilaterally. GASTROINTESTINAL: Abdomen soft, non-tender, nondistended. Hepatic and splenic margins not palpable. MUSCULOSKELETAL: Extremities without clubbing, cyanosis, or edema. No obvious deformities. NEUROLOGICAL: Awake and alert. No obvious cranial nerve deficits. Motor grossly within normal limits. Five out of 5 muscle strength in the arms and legs. Normal speech. PSYCHIATRIC: Appropriate mood and affect; insight and judgment normal. Data Data Last Documented VS Vital Signs Date Time Temp Pulse Resp B/P (MAP) Pulse Ox O2 Delivery O2 Flow Rate FiO2 05/30/17 14:36 99.2 85 18 113/75 (88) 95 Room Air Orders Orders Influenzae A/B Antigen (05/30/17 13:22) Complete Blood Count With Diff (05/30/17 13:46) Basic Metabolic Panel (Bmp) (05/30/17 13:46) Blood Culture (05/30/17 13:46) Iv Access Insert/Monitor (05/30/17 13:46) Chest, Single Ap (05/30/17 13:46) Sodium Chloride 0.9% Flush (Ns Flush) (05/30/17 14:00) Sodium Chlor 0.9% 1000 Ml Inj (Ns 1000 M (05/30/17 13:46) Lactic Acid Sepsis Protocol (05/30/17 13:46) Acetaminophen (Tylenol) (05/30/17 14:00) Labs Laboratory Tests Test 05/30/17 14:10 White Blood Count 8.6 TH/MM3 Red Blood Count 4.71 MIL/MM3 Hemoglobin 13.0 GM/DL Hematocrit 40.8 % Mean Corpuscular Volume 86.7 FL Mean Corpuscular Hemoglobin 27.6 PG Mean Corpuscular Hemoglobin Concent 31.9 % Red Cell Distribution Width 15.0 % Platelet Count 361 TH/MM3 Mean Platelet Volume 7.6 FL Neutrophils (%) (Auto) 61.3 % Lymphocytes (%) (Auto) 32.0 % Monocytes (%) (Auto) 5.5 % Eosinophils (%) (Auto) 0.4 % Basophils (%) (Auto) 0.8 % Neutrophils # (Auto) 5.2 TH/MM3 Lymphocytes # (Auto) 2.7 TH/MM3 Monocytes # (Auto) 0.5 TH/MM3 Eosinophils # (Auto) 0.0 TH/MM3 Basophils # (Auto) 0.1 TH/MM3 CBC Comment DIFF FINAL Differential Comment Blood Urea Nitrogen 15 MG/DL Creatinine 0.98 MG/DL Random Glucose 109 MG/DL Calcium Level 9.1 MG/DL Sodium Level 137 MEQ/L Potassium Level 3.6 MEQ/L Chloride Level 104 MEQ/L Carbon Dioxide Level 25.7 MEQ/L Anion Gap 7 MEQ/L Estimat Glomerular Filtration Rate 80 ML/MIN Lactic Acid Level 1.4 mmol/L [facility] Medical Decision Making Medical Screen Exam Complete: Yes Emergency Medical Condition: Yes Interpretation(s) CBC: Unremarkable, no leukocytosis BMP: Unremarkable Lactic: 1.4 Influenza: Negative Chest x-ray: Minimal developing present changes left base. Differential Diagnosis Influenza, pneumonia, sepsis Narrative Course 51-year-old male who is HIV positive here with flulike symptoms 3 days. IV access established, labs, chest x-ray ordered and pending. Tylenol and IV hydration administered. Labs reviewed. No leukocytosis. Lactic acid 1.4. Influenza is negative. Chest x-ray show minimal developing change to the left base. Patient was reassessed after IV hydration. He reports symptom improvement. Vital signs are stabilized. He is well-appearing. I suspect this is his influenza given his symptoms. He will be treated with Tamiflu and azithromycin. He is instructed to follow up with his primary doctor. Return if he develops new or worsening symptoms. Diagnosis Primary Impression: Pneumonia Qualified Codes: J18.1 - Lobar pneumonia, unspecified organism Referrals: Primary Care Physician Additional Instructions: Medication as prescribed. Tylenol or ibuprofen for fever and chills. Stable hydrated by drinking plenty of fluids. Return if he developed new or worsening symptoms. Scripts Albuterol 8.5 GM Inh (Proair Hfa 8.5 GM Inh) 90 Mcg/Act Aer 2 PUFF INH Q4-6H Y for SHORTNESS OF BREATH, #1 INHALER 0 Refills 108 mcg/actuation Prov: Valarie Arteaga 05/30/17 Benzonatate (Tessalon Perles) 100 Mg Cap 200 MG PO TID Y for COUGH, #12 CAP 0 Refills Prov: Valarie Arteaga 05/30/17 Azithromycin (Azithromycin) 250 Mg Tab 250 MG PO DIRECTED for Infection, #6 TAB 0 Refills Take 2 tabs (500 mg) on day 1 then 1 tab daily x 4 days. Prov: Valarie Arteaga 05/30/17 Oseltamivir (Tamiflu) 75 Mg Cap 75 MG PO BID for Mgmt Viral Infection for 5 Days, #10 CAP 0 Refills Prov: Valarie Arteaga 05/30/17 Disposition: 01 DISCHARGE HOME Condition: Stable Valarie Arteaga May 30, 2017 13:59
[2017-05-30] MEDS ORDERED: SODIUM CHLORIDE 0.9% FLUSH 10 ML FLUSH IVF PRN (14:00)
[2017-05-30] MEDS ORDERED: ACETAMINOPHEN 500 MG CPLT PO ONE (14:00)
[2017-05-30 14:22] LABS: AUTOMATED NEUTROPHIL # 5.2 TH/MM3 (1.8-7.7); BASOPHIL # 0.1 TH/MM3 (0-0.2); BASOPHIL % 0.8 % (0.0-2.0); EOSINOPHIL % 0.4 % (0.0-4.0); HEMATOCRIT 40.8 % (39.0-51.0); LYMPHOCYTE # 2.7 TH/MM3 (1.0-4.8); MEAN CELL VOLUME 86.7 FL (80.0-100.0); MEAN CORPUSCULAR HEMOGLOBIN 27.6 PG (27.0-34.0); MEAN CORPUSCULAR HGB CONC 31.9 % (32.0-36.0); MEAN PLATELET VOLUME 7.6 FL (7.0-11.0); MONO % 5.5 % (0.0-8.0); MONOCYTE # 0.5 TH/MM3 (0-0.9); NEUT % 61.3 % (16.0-70.0); PLATELET COUNT 361 TH/MM3 (150-450); RED BLOOD COUNT 4.71 MIL/MM3 (4.50-5.90); WHITE BLOOD COUNT 8.6 TH/MM3 (4.0-11.0)
--- NOTE | 2017-05-30 14:28 | RADRPT ---
EXAM DATE/TIME: 05/30/2017 13:51 [facility] COMPARISON: CHEST SINGLE AP, June 29, 2015, 16:50. INDICATIONS : Fever and chills MEDICAL HISTORY : None. SURGICAL HISTORY : None. ENCOUNTER: Initial ACUITY: 3 days PAIN SCORE: 4/10 LOCATION: Bilateral chest FINDINGS: Minimal parenchymal changes left base. Right lung clear. The heart and pulmonary vascularity are nor mal. Bilateral shoulder arthroplasties. CONCLUSION: Minimal developing present changes left base. Alec Mejia MD FACR on May 30, 2017 at 14:25 Board Certified Radiologist. This report was verified electronically.
[2017-05-30 14:35] LABS: BICARBONATE 25.7 MEQ/L (21.0-32.0); CALCIUM 9.1 MG/DL (8.5-10.1)
[2017-05-30 14:36] VITALS: BP 113/75; PULSE 85; RESP 18; TEMP 99.2; O2SAT 95
[2017-05-30 14:39] LABS: CREATININE 0.98 MG/DL (0.60-1.30)
[2017-05-30] MEDS ORDERED: ALBUAER3 INH (14:51)
[2017-05-30] MEDS ORDERED: OSEL75 PO (14:51)
[2017-05-30] MEDS ORDERED: AZIT250T3 PO (14:51)
[2017-05-30] MEDS ORDERED: BENZ100 PO (14:51)
[2017-05-30 15:30] VITALS: BP 130/80
== END 2017-05-30 15:35 | disposition home or self-care (01) ==
LOC: PHEFT 13:14
DX: J18.1 Lobar pneumonia, unspecified organism (principal); E78.00 Pure hypercholesterolemia, unspecified; F31.9 Bipolar disorder, unspecified; F20.9 Schizophrenia, unspecified; F41.0 Panic disorder [episodic paroxysmal anxiety]; I10 Essential (primary) hypertension; F03.90 Unspecified dementia, unspecified severity, without behavioral disturbance, psychotic disturbance, mood disturbance, and anxiety; K21.9 Gastro-esophageal reflux disease without esophagitis; Z21 Asymptomatic human immunodeficiency virus [HIV] infection status
CPT/HCPCS: 71045; 80048; 83605; 85025; 87040; 87804; 96360; 99284; J7030

== ENCOUNTER → 2017-06-29 | Outpatient (CLI) | payer MEDICARE ==
[~2017-06-29] MED LIST changes: +ALBUAER3 INH; +AZIT250T3 PO; +BENZ100 PO; +OSEL75 PO; -PERC7.5T13 PO
[2017-06-29 10:10] LABS: AUTOMATED NEUTROPHIL # 1.9 TH/MM3 (1.8-7.7); BASOPHIL % 0.5 % (0.0-2.0); EOSINOPHIL # 0.3 TH/MM3 (0-0.4); EOSINOPHIL % 4.2 % (0.0-4.0); HEMATOCRIT 39.6 % (39.0-51.0); HEMOGLOBIN 13.1 GM/DL (13.0-17.0); LYMPH % 58.9 % (9.0-44.0); LYMPHOCYTE # 3.6 TH/MM3 (1.0-4.8); MEAN CELL VOLUME 87.3 FL (80.0-100.0); MEAN CORPUSCULAR HGB CONC 33.2 % (32.0-36.0); MEAN PLATELET VOLUME 7.2 FL (7.0-11.0); MONO % 5.5 % (0.0-8.0); MONOCYTE # 0.3 TH/MM3 (0-0.9); NEUT % 30.9 % (16.0-70.0); PLATELET COUNT 232 TH/MM3 (150-450); RED BLOOD COUNT 4.53 MIL/MM3 (4.50-5.90); RED CELL DISTRIBUTION WIDTH 16.1 % (11.6-17.2); WHITE BLOOD COUNT 6.2 TH/MM3 (4.0-11.0)
[2017-06-29 10:39] LABS: ALBUMIN 3.9 GM/DL (3.4-5.0); ALT (GPT) 26 U/L (12-78); AST (GOT) 25 U/L (15-37); BICARBONATE 28.1 MEQ/L (21.0-32.0); BLOOD UREA NITROGEN 7 MG/DL (7-18); CALCIUM 8.4 MG/DL (8.5-10.1); CHLORIDE 101 MEQ/L (98-107); CREATININE 1.04 MG/DL (0.60-1.30); GLOMERULAR FILTRATION RATE 75 ML/MIN (>89); GLUCOSE,FASTING 116 MG/DL (74-99); SODIUM (NA) 136 MEQ/L (136-145)
[2017-06-29 10:49] LABS: ALKALINE PHOSPHATASE 114 U/L (45-117); TOTAL BILIRUBIN ADULT 0.3 MG/DL (0.2-1.0); TOTAL PROTEIN 7.9 GM/DL (6.4-8.2)
== END ==
LOC: CLAB 09:32
PROVIDERS: ATTEND Internal Medicine Infectious Disease
DX: R97.20 Elevated prostate specific antigen [PSA] (principal); R94.6 Abnormal results of thyroid function studies; B20 Human immunodeficiency virus [HIV] disease; E87.8 Other disorders of electrolyte and fluid balance, not elsewhere classified; D64.9 Anemia, unspecified; K75.9 Inflammatory liver disease, unspecified
CPT/HCPCS: 36415; 80053; 84443; 85025; 86317; 86355; 86357; 86359; 86360; 86708; 87536

== ENCOUNTER → 2017-09-21 | Outpatient (CLI) | payer MEDICARE ==
[2017-09-21 08:03] LABS: AUTOMATED NEUTROPHIL # 1.2 TH/MM3 (1.8-7.7); BASOPHIL % 0.5 % (0.0-2.0); EOSINOPHIL # 0.2 TH/MM3 (0-0.4); EOSINOPHIL % 4.4 % (0.0-4.0); HEMATOCRIT 37.5 % (39.0-51.0); HEMOGLOBIN 12.4 GM/DL (13.0-17.0); LYMPH % 67.9 % (9.0-44.0); LYMPHOCYTE # 3.4 TH/MM3 (1.0-4.8); MEAN CELL VOLUME 87.7 FL (80.0-100.0); MEAN CORPUSCULAR HEMOGLOBIN 28.9 PG (27.0-34.0); MEAN PLATELET VOLUME 7.4 FL (7.0-11.0); MONO % 3.8 % (0.0-8.0); MONOCYTE # 0.2 TH/MM3 (0-0.9); NEUT % 23.4 % (16.0-70.0); PLATELET COUNT 239 TH/MM3 (150-450); RED BLOOD COUNT 4.28 MIL/MM3 (4.50-5.90); RED CELL DISTRIBUTION WIDTH 16.8 % (11.6-17.2)
[2017-09-21 08:27] LABS: % SATURATION IRON PROFILE 9.9 % (20-50); C-REACTIVE PROTEIN 1.07 MG/DL (0.00-0.30); IRON (FE) 42 MCG/DL (65-175); TOTAL IRON BINDING CAPACITY 426 MCG/DL (250-450)
[2017-09-21 08:36] LABS: FERRITIN 18 NG/ML (26-388); FREE T4 0.65 NG/DL (0.76-1.46)
[2017-09-21 09:53] LABS: OVALOCYTES 1+ (NORMAL)
[2017-09-23 15:33] LABS: TESTOSTERONE,TOTAL 303 ng/dL (240-950)
== END ==
LOC: CLAB 09-20 08:37
PROVIDERS: ATTEND Family Medicine
DX: E10.8 Type 1 diabetes mellitus with unspecified complications (principal); R53.83 Other fatigue; E03.8 Other specified hypothyroidism; Z79.899 Other long term (current) drug therapy
CPT/HCPCS: 36415; 82728; 83540; 83550; 84403; 84439; 84443; 84480; 84482; 85025; 86140

== ENCOUNTER → 2017-10-12 | Outpatient (CLI) | payer MEDICARE ==
[2017-10-12 13:14] LABS: AUTOMATED NEUTROPHIL # 1.7 TH/MM3 (1.8-7.7); BASOPHIL % 0.9 % (0.0-2.0); EOSINOPHIL # 0.3 TH/MM3 (0-0.4); EOSINOPHIL % 5.4 % (0.0-4.0); HEMATOCRIT 37.8 % (39.0-51.0); HEMOGLOBIN 12.2 GM/DL (13.0-17.0); LYMPH % 57.7 % (9.0-44.0); LYMPHOCYTE # 3.1 TH/MM3 (1.0-4.8); MEAN CELL VOLUME 88.2 FL (80.0-100.0); MEAN CORPUSCULAR HEMOGLOBIN 28.6 PG (27.0-34.0); MEAN CORPUSCULAR HGB CONC 32.4 % (32.0-36.0); MEAN PLATELET VOLUME 7.4 FL (7.0-11.0); MONO % 4.3 % (0.0-8.0); MONOCYTE # 0.2 TH/MM3 (0-0.9); NEUT % 31.7 % (16.0-70.0); PLATELET COUNT 239 TH/MM3 (150-450); RED BLOOD COUNT 4.28 MIL/MM3 (4.50-5.90); RED CELL DISTRIBUTION WIDTH 16.5 % (11.6-17.2); WHITE BLOOD COUNT 5.3 TH/MM3 (4.0-11.0)
[2017-10-12 13:36] LABS: ALBUMIN 3.6 GM/DL (3.4-5.0); ALT (GPT) 26 U/L (12-78); AST (GOT) 22 U/L (15-37); BICARBONATE 27.9 MEQ/L (21.0-32.0); BLOOD UREA NITROGEN 12 MG/DL (7-18); CALCIUM 8.8 MG/DL (8.5-10.1); CHLORIDE 106 MEQ/L (98-107); CHOLESTEROL 288 MG/DL (120-200); CREATININE 1.09 MG/DL (0.60-1.30); GLOMERULAR FILTRATION RATE 70 ML/MIN (>89); GLUCOSE,FASTING 119 MG/DL (74-99); SODIUM (NA) 143 MEQ/L (136-145); TRIGLYCERIDES 316 MG/DL (42-150)
[2017-10-12 13:47] LABS: ALKALINE PHOSPHATASE 85 U/L (45-117); CHOLESTEROL/ HDL RATIO 7.44 RATIO; HDL CHOLESTEROL 38.7 MG/DL (40.0-60.0); LDL CHOLESTEROL 186 MG/DL (0-99); THYROXINE (T4) 4.8 MCG/DL (4.5-12.1); TOTAL BILIRUBIN ADULT 0.2 MG/DL (0.2-1.0); TOTAL PROTEIN 7.5 GM/DL (6.4-8.2)
== END ==
LOC: CLAB 12:39
PROVIDERS: ATTEND Internal Medicine Infectious Disease
DX: B20 Human immunodeficiency virus [HIV] disease (principal); R94.6 Abnormal results of thyroid function studies; E55.9 Vitamin D deficiency, unspecified; D64.9 Anemia, unspecified; E87.8 Other disorders of electrolyte and fluid balance, not elsewhere classified; E78.4 Other hyperlipidemia; E07.81 Sick-euthyroid syndrome
CPT/HCPCS: 36415; 80053; 80061; 82306; 84436; 84443; 84480; 85025; 86355; 86357; 86359; 86360; 87536